=== PATIENT | male | born 2000 | race Hispanic/Latino ===

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

== ENCOUNTER 2024-01-15 20:55 | Emergency (ER) | payer SELFPAY ==
[~2024-01-15] VITALS: Ht 182.9 cm; Wt 104.3 kg
[2024-01-15] MEDS: ketOROlac 30MG VIAL (30MG/ML) IM ONE (21:40)
[2024-01-15] MEDS: DIPH,PERTUSS(ACELL),TET VAC/PF 0.5 ML VIAL IM ONE (21:42)
[2024-01-15] MEDS: OCTYL 2-CYANOACRYLATE 1 EACH TP SCH (22:24)
[2024-01-15] MEDS ORDERED: CEPH500B PO (22:29)
[2024-01-15 22:30] VITALS: BP 134/70; PULSE 62; RESP 20; TEMP 97.7; O2SAT 100
== END 2024-01-15 22:33 | disposition home or self-care (01) ==
LOC: EDH 20:55
DX: S60.415A Abrasion of left ring finger, initial encounter (principal); S60.413A Abrasion of left middle finger, initial encounter; S60.410A Abrasion of right index finger, initial encounter; S60.412A Abrasion of right middle finger, initial encounter; W27.8XXA Contact with other nonpowered hand tool, initial encounter; Y93.89 Activity, other specified; Y92.89 Other specified places as the place of occurrence of the external cause; Y99.8 Other external cause status
CPT/HCPCS: 99284; 90715; 73120 ×2; 96372; 90471; J1885